=== PATIENT | male | born 1990 | race Caucasian/White ===

== ENCOUNTER 2025-03-23 19:09 | Emergency (ER) | payer MEDICAID ==
[~2025-03-23] VITALS: Ht 170.2 cm; Wt 82.0 kg
[2025-03-23 19:33] VITALS: O2SAT 98
[2025-03-23] MEDS: TETANUS, DIPHTHERIA, PERTUSSIS VAC/PF 0.5ML (>10YR OLD) IM ONE (20:11)
[2025-03-23] MEDS: ACETAMINOPHEN 500MG TABLET PO ONE (20:12)
[2025-03-23] MEDS: BACITRACIN ZINC OINT UDPKT TOP ONE (20:14)
[2025-03-23] MEDS: LIDOCAINE HCL 1% 20ML VIAL INFIL ONE (20:14)
[2025-03-23] MEDS ORDERED: IBUP-2028 MT (20:59)
[2025-03-23] MEDS ORDERED: AMOX1TAB16 MT (20:59)
[2025-03-23] MEDS: CEFAZOLIN SODIUM 1000MG/VIAL IM SCH (21:50)
[2025-03-23 22:12] VITALS: BP 117/82; PULSE 65; RESP 14; TEMP 36.7; O2SAT 100
== END 2025-03-23 22:34 | disposition home or self-care (01) ==
LOC: ER 19:09
DX: S61.216A Laceration without foreign body of right little finger without damage to nail, initial encounter (principal); I10 Essential (primary) hypertension; W26.8XXA Contact with other sharp object(s), not elsewhere classified, initial encounter; Y93.89 Activity, other specified; Y92.89 Other specified places as the place of occurrence of the external cause; Y99.8 Other external cause status
CPT/HCPCS: 73130; 90715; 12001; 90471; 96372; 99284; J0690; J2003; Z7610 ×2